=== PATIENT | female | born 1955 ===

== ENCOUNTER 2021-07-27 20:47 | Emergency (ER) | payer MEDICARE ==
[2021-07-27] MEDS ORDERED: Amoxicillin/Clavulanate K 875-125 MG Tab PO STA (21:17)
== END 2021-07-27 21:29 | disposition home or self-care (01) ==
LOC: FB.ED 20:47
DX: J20.9 Acute bronchitis, unspecified (principal); R09.81 Nasal congestion; Z79.899 Other long term (current) drug therapy; Z79.82 Long term (current) use of aspirin
CPT/HCPCS: 99283; A9270